=== PATIENT | female | born 1990 | race Caucasian/White ===

== ENCOUNTER 2024-06-04 03:35 | Emergency (ER) | payer MEDICAID ==
[~2024-06-04] VITALS: Ht 167.6 cm; Wt 83.9 kg
[2024-06-04 03:43] VITALS: BP 103/52; PULSE 58; RESP 18; TEMP 97.7; O2SAT 99
[2024-06-04] MEDS ORDERED: DICYCLOMINE HCL LIQUID 10 MG/5 ML UDC ONE (04:10)
[2024-06-04] MEDS ORDERED: ALUMINUM HYD/MAG/SIMETHICONE 30 ML UDC ONE (04:10)
[2024-06-04] MEDS: DICYCLOMINE HCL LIQUID 20 MG, ALUMINUM HYD/MAG/SIMETHICONE 30 ML, LIDOCAINE VISCOUS 2% ... PO ONE (04:19)
[2024-06-04] MEDS ORDERED: IBUP-2213 PO (04:35)
[2024-06-04] MEDS ORDERED: OMEP40EC24 PO (04:35)
[2024-06-04 04:50] VITALS: BP 101/55; PULSE 56; RESP 18; TEMP 97.7; O2SAT 99
== END 2024-06-04 04:50 | disposition home or self-care (01) ==
LOC: MED 03:35
DX: R10.13 Epigastric pain (principal); J45.909 Unspecified asthma, uncomplicated
CPT/HCPCS: 99284